=== PATIENT | male | born 1940 | race Caucasian/White ===

== ENCOUNTER 2019-09-09 05:56 | Observation (INO) ==
[2019-09-09 06:45] LABS: Basophils % 0.4 % (0.0-0.8); Eosinophils # 0.2 10*3/uL (0.0-0.87); Eosinophils % 3.8 % (0.00-10.9); Hematocrit 41.8 VOL% (42.0-52.0); Hemoglobin 14.3 GM/DL (14.0-18.0); Immature Granulocytes % 0.6 %; Immature Granulocytes Absolute 0.03 #; Lymphocytes # 1.8 10*3/uL (1.4-4.0); Lymphocytes % 33.8 % (21.2-54.2); Mean Corpuscular HGB Conc 34.2 GM/DL (32-36); Mean Corpuscular Volume 94.6 FL (87-102); Mean Platelet Volume 9.9 FL (9.6-12.0); Monocytes % 13.2 % (1.7-12.7); Neutrophils % 48.2 % (38.7-73.9); Platelet Count 139 T/CUMM (130-400); Red Blood Count 4.42 MC/CUMM (3.8-5.5); Red Cell Distribution Width 13.5 % (9.3-17.3); White Blood Count 5.3 T/CUMM (4-12)
[2019-09-09] MEDS ORDERED: DILTIAZEM 50 MG/10 ML VIAL IV STA (06:46)
[2019-09-09 06:59] LABS: INR 4.3
[2019-09-09] MEDS ORDERED: DILTIAZEM 25 MG/5 ML VIAL IV ONE (06:59)
[2019-09-09] MEDS ORDERED: DILTIAZEM INJ 100 MG in SODIUM CHLORIDE 0.9% 100 ML IV SCH (07:00)
[2019-09-09 07:06] LABS: PT Patient Result 46.3 SECS (9.6-12.2); Partial Thromboplastin Time 41.7 SECS (20.8-36.0)
[2019-09-09 07:11] LABS: Albumin 3.4 G/DL (3.4-5.0); Calcium 8.6 MG/DL (8.5-10.1); Osmolality,Calculated 280.3 MOS/KG (273-304); Thyroid Stimulating Hormone 4.23 uIU/ml (0.358-3.74); Total Protein 7.2 G/DL (6.4-8.3)
[2019-09-09 07:32] LABS: Barbiturates Screen,Urine Negative (Negative); Benzodiazepines Screen,Urine Negative (Negative); Cannabinoid Screen,Urine Negative (Negative); Opiate Screen,Urine Negative (Negative); Phencyclidine Screen,Urine Negative (Negative)
[2019-09-09] MEDS ORDERED: POTASSIUM CHLORIDE 20 MEQ TABLET PO PRN (09:53)
[2019-09-09] MEDS ORDERED: ONDANSETRON 4 MG/2 ML VIAL IV PRN (09:53)
[2019-09-09] MEDS ORDERED: diphenhydrAMINE CAP 25 MG CAPSULE PO PRN (09:53)
[2019-09-09] MEDS ORDERED: MAGNESIUM SULF RIDER 4 GM in PREMIX 1 EACH IV PRN (09:53)
[2019-09-09] MEDS ORDERED: MAGNESIUM SULF RIDER 2 GM in PREMIX 1 EACH IV PRN (09:53)
[2019-09-09] MEDS ORDERED: DOCUSATE SODIUM 100 MG CAPSULE PO PRN (09:53)
[2019-09-09] MEDS ORDERED: ZALEPLON 5 MG CAPSULE PO PRN (09:53)
[2019-09-09] MEDS ORDERED: ACETAMINOPHEN 325 MG TABLET PO PRN (09:53)
[2019-09-09] MEDS ORDERED: BISACODYL 10 MG SUPP RECTAL PRN (10:02)
[2019-09-09] MEDS: SOTALOL 80 MG TABLET PO SCH ×2 (10:46→21:14)
[2019-09-09] MEDS: GABAPENTIN 100 MG CAPSULE PO SCH ×2 (10:46→21:14)
[2019-09-09] MEDS: PANTOPRAZOLE 40 MG TABLET PO SCH (10:46)
[2019-09-09] MEDS ORDERED: MAGNESIUM HYDROXIDE SUSP 30 ML UDCUP PO PRN (12:35)
[2019-09-09] MEDS: IPRATROPIUM 0.06% NASAL SPRAY 15 ML BOTTLE BOTH NARES SCH ×2 (16:16→21:13)
[2019-09-09] MEDS ORDERED: ATORVASTATIN 10 MG TABLET PO SCH (21:00)
[2019-09-09] MEDS ORDERED: DOXAZOSIN 4 MG TABLET PO SCH (21:00)
[2019-09-10 04:55] LABS: Basophils % 0.4 % (0.0-0.8); Eosinophils # 0.2 10*3/uL (0.0-0.87); Eosinophils % 2.5 % (0.00-10.9); Hematocrit 40.5 VOL% (42.0-52.0); Hemoglobin 13.9 GM/DL (14.0-18.0); Immature Granulocytes % 0.4 %; Immature Granulocytes Absolute 0.03 #; Lymphocytes # 3.1 10*3/uL (1.4-4.0); Lymphocytes % 38.8 % (21.2-54.2); Mean Corpuscular HGB Conc 34.3 GM/DL (32-36); Mean Corpuscular Volume 94.6 FL (87-102); Mean Platelet Volume 9.8 FL (9.6-12.0); Monocytes % 10.4 % (1.7-12.7); Neutrophils % 47.5 % (38.7-73.9); Platelet Count 139 T/CUMM (130-400); Red Blood Count 4.28 MC/CUMM (3.8-5.5); Red Cell Distribution Width 13.6 % (9.3-17.3); White Blood Count 7.9 T/CUMM (4-12)
[2019-09-10 05:02] LABS: INR 3.1
[2019-09-10 05:05] LABS: PT Patient Result 33.7 SECS (9.6-12.2)
[2019-09-10 05:27] LABS: Albumin 2.8 G/DL (3.4-5.0); Bilirubin,Total 1.3 MG/DL (0.2-1.0); Calcium 8.2 MG/DL (8.5-10.1); Osmolality,Calculated 282.3 MOS/KG (273-304); Total Protein 6.5 G/DL (6.4-8.3)
[2019-09-10 05:34] LABS: Calcium 8.3 MG/DL (8.5-10.1); Osmolality,Calculated 276.7 MOS/KG (273-304)
[2019-09-10] MEDS ORDERED: LEVOTHYROXINE 50 MCG TABLET PO SCH (07:00)
[2019-09-10] MEDS: dilTIAZem Drip 125 MG/125 ML PREMIX IV SCH ×2 (07:46→08:43)
[2019-09-10] MEDS: IPRATROPIUM 0.06% NASAL SPRAY 15 ML BOTTLE BOTH NARES SCH ×2 (08:45→14:29)
[2019-09-10] MEDS: GABAPENTIN 100 MG CAPSULE PO SCH (08:45)
[2019-09-10] MEDS: PANTOPRAZOLE 40 MG TABLET PO SCH (08:45)
[2019-09-10] MEDS: SOTALOL 80 MG TABLET PO SCH (08:46)
[2019-09-10] MEDS ORDERED: MIDAZOLAM 10 MG/2 ML VIAL ONE (10:29)
[2019-09-10] MEDS ORDERED: flumazeniL 0.5 MG/5 ML VIAL IV ONE (10:30)
[2019-09-10 12:32] VITALS: BP 100/52
[2019-09-11] MEDS ORDERED: WARFARIN 5 MG TABLET PO SCH (18:00)
[2019-09-12] MEDS ORDERED: WARFARIN 10 MG TABLET PO SCH (18:00)
== END 2019-09-10 15:30 | disposition home or self-care (01) ==
LOC: N.ED 05:56 → N.EDINP 07:19 → INTOOBSV 07:19 → N.EDINP 09:00 → N.TELEN 09:14
PROVIDERS: ADMIT Internal Medicine Cardiovascular Disease; ATTEND Internal Medicine Cardiovascular Disease

== ENCOUNTER 2021-02-06 14:45 | Inpatient (IN) ==
[2021-02-06] MEDS ORDERED: PANTOPRAZOLE 40 MG VIAL IV STA (15:04)
[2021-02-06 15:12] LABS: Basophils % 0.2 % (0.0-0.8); Eosinophils # 0.1 10*3/uL (0.0-0.87); Eosinophils % 2.3 % (0.00-10.9); Hematocrit 40.7 VOL% (42.0-52.0); Hemoglobin 13.6 GM/DL (14.0-18.0); Immature Granulocytes % 0.7 %; Immature Granulocytes Absolute 0.04 #; Lymphocytes # 1.4 10*3/uL (1.4-4.0); Lymphocytes % 24.5 % (21.2-54.2); Mean Corpuscular HGB Conc 33.4 GM/DL (32-36); Mean Corpuscular Volume 96.2 FL (87-102); Mean Platelet Volume 9.1 FL (9.6-12.0); Monocytes % 11.9 % (1.7-12.7); Neutrophils % 60.4 % (38.7-73.9); Platelet Count 129 T/CUMM (130-400); Red Blood Count 4.23 MC/CUMM (3.8-5.5); Red Cell Distribution Width 13.6 % (9.3-17.3); White Blood Count 5.5 T/CUMM (4-12)
[2021-02-06 15:25] LABS: INR 2.5
[2021-02-06 15:30] LABS: PT Patient Result 26.4 SECS (10.5-12.0)
[2021-02-06 15:31] LABS: Albumin 3.4 G/DL (3.4-5.0); Bilirubin,Total 1.2 MG/DL (0.2-1.0); Osmolality,Calculated 274.8 MOS/KG (273-304); Potassium 4.4 MMOL/L (3.5-5.1)
[2021-02-06] MEDS ORDERED: hydrALAZINE 20 MG/1 ML VIAL IV PRN (15:51)
[2021-02-06] MEDS ORDERED: ONDANSETRON 4 MG/2 ML VIAL IV PRN (15:51)
[2021-02-06] MEDS ORDERED: GLUCAGON 1 MG VIAL IM PRN (15:51)
[2021-02-06] MEDS ORDERED: DEXTROSE 50% 25 GM/50 ML VIAL IV PRN (15:51)
[2021-02-06] MEDS ORDERED: LACTULOSE 20 GM/30 ML UDCUP PO PRN (16:19)
[2021-02-06 16:44] LABS: Risk Ratio 2.68; Thyroid Stimulating Hormone 1.86 uIU/ml (0.358-3.74)
[2021-02-06 18:05] LABS: Hemoglobin 14.4 GM/DL (14.0-18.0)
[2021-02-06] MEDS ORDERED: cefTRIAXone 1,000 MG in SODIUM CHLORIDE 0.9% 100 ML IV SCH (18:30)
[2021-02-06] MEDS: LACTATED RINGERS 1,000 ML IV SCH (19:16)
[2021-02-06] MEDS: GABAPENTIN 100 MG CAPSULE PO SCH (20:07)
[2021-02-06] MEDS: DOXAZOSIN 1 MG TABLET PO SCH (20:07)
[2021-02-06] MEDS: SOTALOL 80 MG TABLET PO SCH (20:07)
[2021-02-06] MEDS: metroNIDAZOLE INJ 500 MG/100 ML PREMIX IV SCH (21:53)
[2021-02-06 22:07] LABS: Hematocrit 37.7 VOL% (42.0-52.0); Hemoglobin 13.1 GM/DL (14.0-18.0)
[2021-02-07 04:54] LABS: Basophils % 0.1 % (0.0-0.8); Eosinophils % 0.2 % (0.00-10.9); Hematocrit 36.8 VOL% (42.0-52.0); Hemoglobin 12.7 GM/DL (14.0-18.0); Immature Granulocytes % 0.6 %; Immature Granulocytes Absolute 0.06 #; Lymphocytes # 2.2 10*3/uL (1.4-4.0); Lymphocytes % 21.7 % (21.2-54.2); Mean Corpuscular HGB Conc 34.5 GM/DL (32-36); Mean Corpuscular Volume 94.6 FL (87-102); Mean Platelet Volume 10.3 FL (9.6-12.0); Monocytes % 10.2 % (1.7-12.7); Neutrophils % 67.2 % (38.7-73.9); Platelet Count 117 T/CUMM (130-400); Red Blood Count 3.89 MC/CUMM (3.8-5.5); Red Cell Distribution Width 13.5 % (9.3-17.3); White Blood Count 9.9 T/CUMM (4-12)
[2021-02-07 05:13] LABS: Calcium 8.5 MG/DL (8.5-10.1); Osmolality,Calculated 275.7 MOS/KG (273-304); Potassium 3.7 MMOL/L (3.5-5.1)
[2021-02-07 05:43] LABS: Hypochromasia Slight; Microcytosis Slight; Ovalocytes Slight
[2021-02-07] MEDS: LACTATED RINGERS 1,000 ML IV SCH ×2 (06:20→22:51)
[2021-02-07] MEDS: LEVOTHYROXINE 50 MCG TABLET PO SCH (06:21)
[2021-02-07] MEDS: PANTOPRAZOLE 40 MG VIAL IV SCH ×3 (06:22→21:36)
[2021-02-07] MEDS: metroNIDAZOLE INJ 500 MG/100 ML PREMIX IV SCH ×3 (06:23→21:40)
[2021-02-07] MEDS: CIPROFLOXACIN INJ 400 MG/200 ML PREMIX IV SCH ×2 (09:11→22:52)
[2021-02-07] MEDS: SOTALOL 80 MG TABLET PO SCH ×2 (09:12→21:39)
[2021-02-07] MEDS: DILTIAZEM CD 180 MG CAPSULE PO SCH (09:12)
[2021-02-07] MEDS: GABAPENTIN 100 MG CAPSULE PO SCH ×2 (09:12→21:40)
[2021-02-07] MEDS: ATORVASTATIN 10 MG TABLET PO SCH (09:12)
[2021-02-07 09:17] LABS: Bilirubin,Urine Negative (Negative); Blood, Urine Negative (Negative); Glucose,Urine (UA) Negative (Negative); Ketones,Urine Negative (Negative); Mucus,Urine Occasional /LPF (Occasional); Nitrite,Urine Negative (Negative); Protein,Urine Negative; RBC,Urine 6 /HPF (0-4); Squamous Epithelial Cell,Urine Occasional /HPF (0-10); Urine Appearance CLEAR (Clear); Urine Color Yellow (Yellow); Urine Urobilinogen < 2.0 EU/DL (0.2-1.0)
[2021-02-07 10:54] LABS: INR 2.5; PT Patient Result 25.8 SECS (10.5-12.0)
[2021-02-07] MEDS: DOXAZOSIN 1 MG TABLET PO SCH (21:39)
[2021-02-08] MEDS: LACTATED RINGERS 1,000 ML IV SCH ×3 (01:06→22:30)
[2021-02-08 04:40] LABS: Basophils % 0.3 % (0.0-0.8); Eosinophils # 0.1 10*3/uL (0.0-0.87); Eosinophils % 1.7 % (0.00-10.9); Hematocrit 35.8 VOL% (42.0-52.0); Hemoglobin 12.6 GM/DL (14.0-18.0); Immature Granulocytes % 0.4 %; Immature Granulocytes Absolute 0.03 #; Lymphocytes # 1.6 10*3/uL (1.4-4.0); Lymphocytes % 22.2 % (21.2-54.2); Mean Corpuscular HGB Conc 35.2 GM/DL (32-36); Mean Corpuscular Volume 94.2 FL (87-102); Monocytes % 11.7 % (1.7-12.7); Neutrophils % 63.7 % (38.7-73.9); Platelet Count 98 T/CUMM (130-400); Red Cell Distribution Width 13.5 % (9.3-17.3); White Blood Count 7.2 T/CUMM (4-12)
[2021-02-08] MEDS: metroNIDAZOLE INJ 500 MG/100 ML PREMIX IV SCH (04:59)
[2021-02-08 05:01] LABS: Hypochromasia Slight; Microcytosis Slight; Platelet Estimate Decreased
[2021-02-08 05:12] LABS: Calcium 8.2 MG/DL (8.5-10.1); Osmolality,Calculated 280.3 MOS/KG (273-304); Potassium 3.8 MMOL/L (3.5-5.1)
[2021-02-08] MEDS: LEVOTHYROXINE 50 MCG TABLET PO SCH (07:18)
[2021-02-08] MEDS: PANTOPRAZOLE 40 MG VIAL IV SCH (08:47)
[2021-02-08] MEDS: DILTIAZEM CD 180 MG CAPSULE PO SCH (08:48)
[2021-02-08] MEDS: GABAPENTIN 100 MG CAPSULE PO SCH ×2 (08:48→20:04)
[2021-02-08] MEDS: CIPROFLOXACIN INJ 400 MG/200 ML PREMIX IV SCH (08:48)
[2021-02-08] MEDS: ATORVASTATIN 10 MG TABLET PO SCH (08:48)
[2021-02-08] MEDS: SOTALOL 80 MG TABLET PO SCH ×2 (08:48→20:04)
[2021-02-08] MEDS ORDERED: FLUTICASONE 50 MCG NASAL SPRAY 16 GM BOTTLE BOTH NARES PRN (11:14)
[2021-02-08] MEDS: WARFARIN 2 MG TABLET PO SCH (13:18)
[2021-02-08] MEDS: PIPERACILLIN/TAZOBACTAM 3,375 MG in SODIUM CHLORIDE 0.9% 100 ML IV SCH ×2 (13:22→20:03)
[2021-02-08] MEDS: POLYETHYLENE GLYCOL POWDER 17 GM PACK PO SCH ×2 (15:49→20:04)
[2021-02-08] MEDS: DOXAZOSIN 1 MG TABLET PO SCH (20:04)
[2021-02-08] MEDS ORDERED: PANTOPRAZOLE 40 MG TABLET PO SCH (21:00)
[2021-02-09] MEDS: PIPERACILLIN/TAZOBACTAM 3,375 MG in SODIUM CHLORIDE 0.9% 100 ML IV SCH (05:08)
[2021-02-09 05:36] LABS: Basophils % 0.3 % (0.0-0.8); Eosinophils # 0.2 10*3/uL (0.0-0.87); Eosinophils % 3.4 % (0.00-10.9); Hematocrit 35.7 VOL% (42.0-52.0); Hemoglobin 12.7 GM/DL (14.0-18.0); Immature Granulocytes % 0.6 %; Immature Granulocytes Absolute 0.04 #; Lymphocytes # 1.7 10*3/uL (1.4-4.0); Lymphocytes % 24.8 % (21.2-54.2); Mean Corpuscular HGB Conc 35.6 GM/DL (32-36); Mean Corpuscular Volume 94.2 FL (87-102); Mean Platelet Volume 9.6 FL (9.6-12.0); Monocytes % 11.7 % (1.7-12.7); Neutrophils % 59.2 % (38.7-73.9); Platelet Count 120 T/CUMM (130-400); Red Blood Count 3.79 MC/CUMM (3.8-5.5); Red Cell Distribution Width 13.3 % (9.3-17.3); White Blood Count 6.8 T/CUMM (4-12)
[2021-02-09 06:01] LABS: Platelet Estimate Normal
[2021-02-09 06:04] LABS: Calcium 8.7 MG/DL (8.5-10.1); Osmolality,Calculated 273.7 MOS/KG (273-304); Potassium 3.6 MMOL/L (3.5-5.1)
[2021-02-09] MEDS: LEVOTHYROXINE 50 MCG TABLET PO SCH (06:15)
[2021-02-09] MEDS ORDERED: PANTOPRAZOLE 40 MG TABLET PO SCH (06:30)
[2021-02-09] MEDS ORDERED: LINACLOTIDE 145 MCG CAPSULE PO SCH (07:30)
[2021-02-09] MEDS: WARFARIN 2 MG TABLET PO SCH (09:13)
[2021-02-09] MEDS: GABAPENTIN 100 MG CAPSULE PO SCH (09:13)
[2021-02-09] MEDS: ATORVASTATIN 10 MG TABLET PO SCH (09:13)
[2021-02-09] MEDS: SOTALOL 80 MG TABLET PO SCH (09:13)
[2021-02-09] MEDS: DILTIAZEM CD 180 MG CAPSULE PO SCH (09:13)
[2021-02-09] MEDS: POLYETHYLENE GLYCOL POWDER 17 GM PACK PO SCH (09:14)
[2021-02-09] MEDS ORDERED: SENNA 8.6 MG TABLET PO PRN (10:44)
[2021-02-09 11:40] VITALS: BP 138/74
[2021-02-09] MEDS ORDERED: AMOXICILLIN/CLAV 500 MG TABLET PO SCH (21:00)
== END 2021-02-09 13:21 | disposition home health service (06) | DRG 392 ==
LOC: N.EDINP 14:45 → N.ED 14:45 → SUATTDRO 15:51 → N.5E 16:40
PROVIDERS: ADMIT Internal Medicine; ATTEND Hospitalist